=== PATIENT | female | born 1970 | race Native Hawaiian/Other Pacific Islander ===

== ENCOUNTER 2019-02-06 23:46 | Emergency (ER) | payer BC ==
[~2019-02-06] VITALS: Ht 162.6 cm; Wt 77.1 kg
[~2019-02-06 23:46] MED LIST: ADDERALL20 MG PO; DIAZ5TAB20 PO; DOK100 MG PO; OXYC5TAB24 PO; PROZAC10 MG PO; VITAMIN C1000 MG PO; ZOFRAN ODT8 MG PO
[2019-02-07] MEDS ORDERED: NEURONTIN 100M100 MG PO (00:23)
[2019-02-07] MEDS ORDERED: FLUO10CA2 PO (00:23)
[2019-02-07 01:37] LABS: PLATELET COUNT 295 K/uL (152-353)
[2019-02-07 01:41] LABS: POTASSIUM 3.8 mmol/L (3.6-5.2)
[2019-02-07 04:50] VITALS: BP 134/82; TEMP 98.2
== END 2019-02-07 04:55 | disposition short-term general hospital (02) ==
LOC: ED 23:46
PROVIDERS: Family Medicine
DX: S02.2XXA Fracture of nasal bones, initial encounter for closed fracture (principal); S02.40DA Maxillary fracture, left side, initial encounter for closed fracture; W01.198A Fall on same level from slipping, tripping and stumbling with subsequent striking against other object, initial encounter; Y92.481 Parking lot as the place of occurrence of the external cause
CPT/HCPCS: 80053; 85027; 90471; 90715; 96372; 96374; 96375; 96376; 99284; J2175; J2405; J7040

== ENCOUNTER 2019-02-07 04:49 | Outpatient (CLI) | payer BC ==
[~2019-02-07 04:49] MED LIST changes: +FLUO10CA2 PO; +NEURONTIN 100M100 MG PO
== END 2019-02-07 06:15 | disposition short-term general hospital (02) ==
LOC: AMB 04:49
DX: S02.2XXA Fracture of nasal bones, initial encounter for closed fracture (principal); S01.81XA Laceration without foreign body of other part of head, initial encounter; M25.562 Pain in left knee; W01.0XXA Fall on same level from slipping, tripping and stumbling without subsequent striking against object, initial encounter; Y93.89 Activity, other specified; Y92.481 Parking lot as the place of occurrence of the external cause
CPT/HCPCS: A0425; A0429

== ENCOUNTER 2019-06-12 10:47 | Outpatient (CLI) | payer BC | END 2019-06-12 20:13 | disposition home or self-care (01) | LOC: LABW 10:47 | DX: R50.9 Fever, unspecified (principal); M79.10 Myalgia, unspecified site | CPT/HCPCS: 87502 ==

== ENCOUNTER 2019-06-23 16:38 | Outpatient (CLI) | payer BC ==
[2019-06-23 17:04] LABS: POTASSIUM 3.8 mmol/L (3.6-5.2)
[2019-06-23 17:20] LABS: PLATELET COUNT 472 K/uL (152-353)
== END 2019-06-23 20:40 | disposition home or self-care (01) ==
LOC: LABW 16:38
PROVIDERS: Nurse Practitioner Family
DX: R50.9 Fever, unspecified (principal); R05 Cough
CPT/HCPCS: 36415; 80053; 85027

== ENCOUNTER 2019-06-24 14:17 | Outpatient (CLI) | payer BC | END 2019-06-24 19:31 | disposition home or self-care (01) | LOC: LABW 14:17 | DX: R50.9 Fever, unspecified (principal); R19.7 Diarrhea, unspecified | CPT/HCPCS: 82272; 83630; 87015; 87045; 87324; 87328; 87329; 87449; 87502; 87899 ==

== ENCOUNTER 2020-05-05 13:09 | Emergency (ER) | payer BC ==
[~2020-05-05] VITALS: Ht 162.6 cm; Wt 77.1 kg
[2020-05-05 13:44] LABS: PLATELET COUNT 314 K/uL (152-353)
[2020-05-05 13:49] LABS: SODIUM 138 mmol/L (136-145)
[2020-05-05 14:01] LABS: PARTIAL THROMBOPLASTIN TIME 26.3 SECONDS (24.5-33.6)
[2020-05-05 16:05] VITALS: BP 132/58; TEMP 98
== END 2020-05-05 16:05 | disposition home or self-care (01) ==
LOC: ED 13:09
PROVIDERS: Hospitalist
DX: R07.89 Other chest pain (principal); R11.2 Nausea with vomiting, unspecified; G43.909 Migraine, unspecified, not intractable, without status migrainosus; Z03.818 Encounter for observation for suspected exposure to other biological agents ruled out
CPT/HCPCS: 80053; 81000; 82150; 82550; 83690; 83880; 84484; 85027; 85610; 85730; 87635; 93005; 96360; 96375; 99284; J1200; J1885; J2405; U0003

== ENCOUNTER 2020-06-24 16:53 | Outpatient (CLI) | payer BC | END 2020-06-24 21:50 | disposition home or self-care (01) | LOC: RAD 16:53 | PROVIDERS: ATTEND Neurological Surgery | DX: M54.16 Radiculopathy, lumbar region (principal) ==

== ENCOUNTER 2022-06-25 10:04 | Outpatient (CLI) | payer OTHER | END 2022-06-25 18:57 | disposition home or self-care (01) | LOC: MAMMO 10:04 | PROVIDERS: ATTEND Internal Medicine | DX: Z12.31 Encounter for screening mammogram for malignant neoplasm of breast (principal) ==